=== PATIENT | male | born 1965 | race Caucasian/White ===

== ENCOUNTER → 2025-03-28 | Day surgery (SDC) | payer OTHER ==
[2025-03-27 12:00] LABS: BASOPHILS % 0.3 % (0.0-1.0); EOSINOPHILS % 2.4 % (0.0-6.0); LYMPHOCYTES % 18.6 % (18.0-39.1); MONOCYTES % 9.0 % (4.4-11.3); NEUTROPHILS % 69.4 % (38.7-80.0); RED CELL DISTRIBUTION WIDTH 15.0 % (11.7-14.4)
[~2025-03-28] MED LIST: D3-5000125 MCG; HYOSCYAMINE0.375 MG PO; JARDIANCE25 MG PO; LIDOCAINE HCL 2% LOCAL INJ 5 ML SDV VIAL INJ ONE; LOSARTAN POTAS100 MG PO; MIDAZOLAM HCL 2 MG/2 ML VIAL ONE; MONTELUKAST SOD10 MG PO; NEURONTIN400 MG PO; OMEPRAZOLE40 MG PO; PANCREAZE PO; PROPOFOL IV EMULSION 50 ML IV ONE; ROPINIROLE HC0.25 MG PO; TORSEMIDE20 MG PO; VIBERZI75 MG PO
[2025-03-28] MEDS: LACTATED RINGER'S 1,000 ML ONE (08:09)
[2025-03-28 10:23] VITALS: BP 142/81; PULSE 88; RESP 17; O2SAT 97
== END | disposition home or self-care (01) ==
LOC: OR 07:38
PROVIDERS: ATTEND Internal Medicine Gastroenterology
DX: Z12.11 Encounter for screening for malignant neoplasm of colon (principal); D12.2 Benign neoplasm of ascending colon; D12.4 Benign neoplasm of descending colon; K31.7 Polyp of stomach and duodenum; K29.70 Gastritis, unspecified, without bleeding; K20.90 Esophagitis, unspecified without bleeding; K21.9 Gastro-esophageal reflux disease without esophagitis; K31.89 Other diseases of stomach and duodenum; K57.30 Diverticulosis of large intestine without perforation or abscess without bleeding; K62.89 Other specified diseases of anus and rectum; K44.9 Diaphragmatic hernia without obstruction or gangrene; K58.9 Irritable bowel syndrome, unspecified; K64.8 Other hemorrhoids; K76.0 Fatty (change of) liver, not elsewhere classified; G47.33 Obstructive sleep apnea (adult) (pediatric); I10 Essential (primary) hypertension; E66.01 Morbid (severe) obesity due to excess calories; F17.200 Nicotine dependence, unspecified, uncomplicated; Z88.6 Allergy status to analgesic agent; Z01.810 Encounter for preprocedural cardiovascular examination; Z01.812 Encounter for preprocedural laboratory examination; Z79.84 Long term (current) use of oral hypoglycemic drugs
CPT/HCPCS: 36415 ×2; 43239; 45380; 45384; 82948; 85025; 93005; J2003; J2250; J2704; J7121; 45385